=== PATIENT | male | born 1970 | race Caucasian/White ===

== ENCOUNTER → 2024-01-30 11:03 | Outpatient (REF) | payer OTHER, SELFPAY | LOC: HWRAD 11:03 | PROVIDERS: ATTENDING PHYSICIAN Internal Medicine | DX: R07.81 Pleurodynia (principal) | CPT/HCPCS: 71101; 73110; 73130; 73560 ==

== ENCOUNTER → 2024-02-06 15:36 | Outpatient (REF) | payer OTHER, SELFPAY | LOC: HWRAD 15:36 | PROVIDERS: ATTENDING PHYSICIAN Internal Medicine | DX: R07.81 Pleurodynia (principal); W19.XXXA Unspecified fall, initial encounter | CPT/HCPCS: 70450; 70490 ==